=== PATIENT | male | born 1975 | race African-American/Black ===

== ENCOUNTER 2017-03-06 15:07 | Emergency (ER) | payer MEDICAID ==
[~2017-03-06] VITALS: Ht 170.2 cm; Wt 80.0 kg
[2017-03-06 15:18] VITALS: BP 179/102
[2017-03-06] MEDS ORDERED: ONDANSETRON HCL 4MG/2ML VIAL IV ONE (15:30)
[2017-03-06] MEDS ORDERED: FOLIC ACID 1 MG, THIAMINE HCL 100 MG, MVI, ADULT NO.1 10 ML in DEXTROSE 5% WATER 1,000 ML IV ONE ×4 (15:30)
[2017-03-06 16:09] LABS: CLARITY URINE CLEAR (CLEAR); COLOR URINE YELLOW (YELLOW); GLUCOSE URINE 3+ (NEGATIVE); KETONES URINE NEGATIVE (NEGATIVE); LEUKOCYTE ESTERASE URINE NEGATIVE (NEGATIVE); NITRITE URINE NEGATIVE (NEGATIVE); OCCULT BLOOD URINE NEGATIVE (NEGATIVE); PROTEIN URINE NEGATIVE (NEGATIVE); SPECIFIC GRAVITY URINE 1.029 (1.005-1.030); UROBILINOGEN URINE 0.2 E.U./dL (0.2-1.0)
[2017-03-06 16:11] LABS: BACTERIA URINE NONE SEEN; CALCIUM PHOSPHATE CRYSTALS UR NONE SEEN /lpf; RBC URINE NONE SEEN /hpf (0-2); SQUAMOUS EPITHELIAL CELL URINE NONE SEEN /lpf (RARE/1+); WAXY CASTS URINE NONE SEEN /lpf; WBC URINE NONE SEEN /hpf (0-2); YEAST URINE NONE SEEN
[2017-03-06 16:17] LABS: CHLORIDE 102 mEq/L (98-107); INDEX HEMOLYSI 1 (1-3); INDEX ICTERIC 1 (1-4); INDEX LIPEMIC 1 (1-3)
[2017-03-06 16:18] LABS: ALBUMIN 4.4 g/dL (3.4-5.0); ANION GAP 18; CARBON DIOXIDE 27 mEq/L (21-32); UREA NITROGEN BLOOD 9 mg/dL (7-21)
[2017-03-06 16:19] LABS: *AMPHETAMINES SCREEN URINE NEGATIVE (NEGATIVE); *BARBITURATES SCREEN URINE NEGATIVE (NEGATIVE); *BENZODIAZEPINES SCREEN URINE NEGATIVE (NEGATIVE); *COCAINE SCREEN URINE NEGATIVE (NEGATIVE); CANNABINOID URINE SCREEN NEGATIVE (NEGATIVE); ECSTASY MDMA SCREEN URINE NEGATIVE (NEGATIVE); METHADONE URINE SCREEN NEGATIVE (NEGATIVE); OPIATES URINE SCREEN PRESUMTIVE POSITIVE (NEGATIVE); PHENCYCLIDINE URINE SCREEN NEGATIVE (NEGATIVE)
[2017-03-06 16:25] LABS: ALANINE AMINOTRANSFERASE 43 IU/L (13-61); eGFR > 60 mL/min (>60)
[2017-03-06 16:28] LABS: ETHANOL BLOOD 336 mg/dL
[2017-03-06 16:29] LABS: BASOPHILS % 0.4 % (0.0-2.0); EOSINOPHILS % 0.1 % (0.0-5.0); HEMATOCRIT. 39.7 % (42.0-52.0); HEMOGLOBIN. 13.8 g/dL (14.0-18.0); MEAN CORPUSCULAR HEMOGLOBIN 34.6 pg (28.0-32.0); MEAN CORPUSCULAR HGB CONC 34.8 g/dL (31.0-37.0); MEAN CORPUSCULAR VOLUME 99.4 fL (80.0-94.0); MEAN PLATELET VOLUME 8.3 fl (7.4-10.4); MONOCYTES % 9.5 % (2.0-8.0); RED CELL DISTRIBUTION WIDTH 18.6 % (11.6-14.6); WHITE BLOOD COUNT 4.3 x1000/uL (4.5-11.0)
[2017-03-06 16:32] LABS: DIFFERENTIAL COMMENT 1
[2017-03-08 11:40] LABS: ADD RBC MORPHOLOGY YES
[2017-03-08 11:41] LABS: ANISOCYTOSIS 2+; PLATELET ESTIMATE MARKEDLY DECREASED
[2017-03-08 11:42] LABS: PLATELET 29 x1000/uL (130-400)
== END 2017-03-06 17:43 | disposition left against medical advice (07) ==
LOC: ER 15:08
DX: F10.129 Alcohol abuse with intoxication, unspecified (principal); F19.10 Other psychoactive substance abuse, uncomplicated; I10 Essential (primary) hypertension; R56.9 Unspecified convulsions; F17.200 Nicotine dependence, unspecified, uncomplicated
CPT/HCPCS: 36415; 80053; 80305; 81001; 85025; 96365; 96375; 99284; G0482; J2405; J3411; J3490; J7070; Z7610

== ENCOUNTER 2017-07-10 19:04 | Emergency (ER) | payer SELFPAY ==
[~2017-07-10] VITALS: Ht 182.9 cm; Wt 82.0 kg
[~2017-07-10 19:04] MED LIST: IOHEXOL-300 100 ML BOTTLE ONE; IOHEXOL-350 100 ML BOTTLE ONE; SODIUM CHLORIDE 0.9% 10ML VIAL ONE
[2017-07-11] MEDS ORDERED: SODIUM CHLORIDE 0.9% 1,000 ML IV ONE ×3 (02:14→04:30)
[2017-07-11 02:33] LABS: BASOPHILS % 0.5 % (0.0-2.0); EOSINOPHILS % 0.5 % (0.0-5.0); HEMATOCRIT. 34.2 % (42.0-52.0); HEMOGLOBIN. 12.1 g/dL (14.0-18.0); LYMPHOCYTES % 12.4 % (20.0-50.0); MEAN CORPUSCULAR HEMOGLOBIN 36.9 pg (28.0-32.0); MEAN CORPUSCULAR VOLUME 104.4 fL (80.0-94.0); MEAN PLATELET VOLUME 7.8 fl (7.4-10.4); MONOCYTES % 10.4 % (2.0-8.0); NEUTROPHILS % 76.2 % (40.0-76.0); RED BLOOD CELL COUNT 3.27 mill/uL (4.7-6.1); RED CELL DISTRIBUTION WIDTH 13.1 % (11.6-14.6)
[2017-07-11 02:34] LABS: PLATELET 26 x1000/uL (130-400)
[2017-07-11 02:45] LABS: CARBON DIOXIDE 26 mEq/L (21-32); CHLORIDE 104 mEq/L (98-107); ETHANOL BLOOD 253 mg/dL
[2017-07-11] MEDS ORDERED: ONDANSETRON HCL 4MG/2ML VIAL IV ONE (04:30)
[2017-07-11] MEDS ORDERED: MORPHINE SULFATE 4 MG/ML CPJ (NOT FOR IM USE) IV ONE (04:30)
[2017-07-11] MEDS ORDERED: FENTANYL CITRATE/PF 50MCG/ML 2ML VIAL IV ONE (06:15)
[2017-07-11 06:25] VITALS: BP 151/92
[2017-07-11 06:33] LABS: CLARITY URINE CLEAR (CLEAR); COLOR URINE YELLOW (YELLOW); GLUCOSE URINE NEGATIVE (NEGATIVE); KETONES URINE NEGATIVE (NEGATIVE); LEUKOCYTE ESTERASE URINE NEGATIVE (NEGATIVE); NITRITE URINE NEGATIVE (NEGATIVE); OCCULT BLOOD URINE NEGATIVE (NEGATIVE); PH URINE 5.5 (4.5-8.0); PROTEIN URINE 1+ (NEGATIVE); SPECIFIC GRAVITY URINE 1.018 (1.005-1.030)
[2017-07-11 06:46] LABS: *AMPHETAMINES SCREEN URINE NEGATIVE (NEGATIVE); *BARBITURATES SCREEN URINE NEGATIVE (NEGATIVE); *BENZODIAZEPINES SCREEN URINE NEGATIVE (NEGATIVE); *COCAINE SCREEN URINE NEGATIVE (NEGATIVE); CANNABINOID URINE SCREEN PRESUMTIVE POSITIVE (NEGATIVE); METHADONE URINE SCREEN NEGATIVE (NEGATIVE); OPIATES URINE SCREEN PRESUMTIVE POSITIVE (NEGATIVE); PHENCYCLIDINE URINE SCREEN NEGATIVE (NEGATIVE)
== END 2017-07-11 06:52 | disposition short-term general hospital (02) ==
LOC: ER 19:04
DX: S12.000A Unspecified displaced fracture of first cervical vertebra, initial encounter for closed fracture (principal); S82.142A Displaced bicondylar fracture of left tibia, initial encounter for closed fracture; S62.92XA Unspecified fracture of left hand, initial encounter for closed fracture; J45.909 Unspecified asthma, uncomplicated; I10 Essential (primary) hypertension; D69.6 Thrombocytopenia, unspecified; F10.129 Alcohol abuse with intoxication, unspecified; R42 Dizziness and giddiness; X58.XXXA Exposure to other specified factors, initial encounter; Y93.89 Activity, other specified; Y99.8 Other external cause status; Y92.89 Other specified places as the place of occurrence of the external cause
CPT/HCPCS: 29125; 29505; 36415; 70450; 70486; 70498; 71260; 72125; 73110; 73130; 73562; 74177; 80053; 80305; 81001; 85025; 96361; 96374; 96375; 99291; A4216; G0482; J2270; J2405; J3010; J7030; Q9967; Z7610

== ENCOUNTER 2017-09-11 19:55 | Emergency (ER) | payer MEDICAID ==
[~2017-09-11] VITALS: Ht 182.9 cm; Wt 77.0 kg
[2017-09-11] MEDS ORDERED: MORPHINE SULFATE 4 MG/ML CPJ (NOT FOR IM USE) IV STA (23:55)
[2017-09-11] MEDS ORDERED: SODIUM CHLORIDE 0.9% 1,000 ML IV ONE (23:55)
[2017-09-11] MEDS ORDERED: ONDANSETRON HCL 4MG/2ML VIAL IV STA (23:55)
[2017-09-12 00:17] LABS: BASOPHILS % 0.6 % (0.0-2.0); EOSINOPHILS % 0.6 % (0.0-5.0); HEMATOCRIT. 34.1 % (42.0-52.0); HEMOGLOBIN. 11.9 g/dL (14.0-18.0); LYMPHOCYTES % 27.4 % (20.0-50.0); MEAN CORPUSCULAR HEMOGLOBIN 34.8 pg (28.0-32.0); MEAN CORPUSCULAR VOLUME 99.1 fL (80.0-94.0); MEAN PLATELET VOLUME 7.6 fl (7.4-10.4); MONOCYTES % 12.7 % (2.0-8.0); NEUTROPHILS % 58.7 % (40.0-76.0); RED BLOOD CELL COUNT 3.44 mill/uL (4.7-6.1); RED CELL DISTRIBUTION WIDTH 17.3 % (11.6-14.6)
[2017-09-12 00:21] LABS: PLATELET 22 x1000/uL (130-400)
[2017-09-12 00:23] LABS: CHLORIDE 107 mEq/L (98-107)
[2017-09-12 00:28] LABS: CARBON DIOXIDE 29 mEq/L (21-32)
[2017-09-12 06:02] VITALS: BP 122/78
== END 2017-09-12 06:06 | disposition home or self-care (01) ==
LOC: ER 19:59
DX: S12.001A Unspecified nondisplaced fracture of first cervical vertebra, initial encounter for closed fracture (principal); S02.2XXA Fracture of nasal bones, initial encounter for closed fracture; S00.531A Contusion of lip, initial encounter; H11.31 Conjunctival hemorrhage, right eye; F17.200 Nicotine dependence, unspecified, uncomplicated; Y09 Assault by unspecified means; Y93.89 Activity, other specified; Y92.89 Other specified places as the place of occurrence of the external cause; Y99.8 Other external cause status
CPT/HCPCS: 36415; 70450; 70486; 71010; 72125; 80048; 85025; 86850; 86900; 86901; 96361; 96374; 96375; 99285; J2270; J2405; Z7610; J7030

== ENCOUNTER 2022-06-20 11:12 | Emergency (ER) | payer MEDICAID, OTHER ==
[~2022-06-20] VITALS: Ht 182.9 cm; Wt 86.0 kg
[2022-06-20 11:21] VITALS: BP 162/89
== END 2022-06-20 13:38 | disposition home or self-care (01) ==
LOC: ER 11:12
DX: T51.91XA Toxic effect of unspecified alcohol, accidental (unintentional), initial encounter (principal); Y92.9 Unspecified place or not applicable; I10 Essential (primary) hypertension
CPT/HCPCS: 99283

== ENCOUNTER 2022-11-15 05:15 | Inpatient (IN) | payer OTHER ==
[~2022-11-15] VITALS: Ht 172.7 cm; Wt 84.4 kg
[2022-11-15] VITALS (20 sets, daily range): BP systolic 105–142; BP diastolic 56–77
[2022-11-15] MEDS ORDERED: ACETAMINOPHEN 325MG TABLET PO ONE (05:30)
[2022-11-15] MEDS ORDERED: T3 PO (07:24)
[2022-11-15] MEDS ORDERED: IBUP-2028 PO (07:24)
[2022-11-15] MEDS ORDERED: NICARDIPINE 100 MG in SODIUM CHLORIDE 0.9% 60 ML IV PRN ×2 (09:00→12:00)
[2022-11-15 11:07] LABS: INR 1.1; PROTHROMBIN TIME 11.4 sec (9.6-11.0)
[2022-11-15 11:11] LABS: CHLORIDE 102 mEq/L (98-107)
[2022-11-15 11:50] LABS: HEMATOCRIT. 28.4 % (42.0-52.0); HEMOGLOBIN. 10.2 g/dL (14.0-18.0); MEAN CORPUSCULAR HEMOGLOBIN 36.7 pg (28.0-32.0); MEAN CORPUSCULAR VOLUME 102.8 fL (80.0-94.0); MEAN PLATELET VOLUME 8.2 fl (7.4-10.4); PLATELET 78 x1000/uL (130-400); RED BLOOD CELL COUNT 2.77 mill/uL (4.7-6.1); RED CELL DISTRIBUTION WIDTH 13.3 % (11.6-14.6)
[2022-11-15 12:29] LABS: PLATELET ESTIMATE DECREASED
[2022-11-15] MEDS ORDERED: ACETAMINOPHEN 325MG TABLET PO PRN (12:30)
[2022-11-15] MEDS ORDERED: NALOXONE HCL 0.4MG/ML VIAL IV PRN (12:30)
[2022-11-15] MEDS ORDERED: MVI, ADULT NO.1 10 ML, FOLIC ACID 1 MG, THIAMINE HCL 100 MG in SODIUM CHLORIDE 0.9% 1,0... IV ONE ×8 (12:30→17:00)
[2022-11-15] MEDS ORDERED: ONDANSETRON HCL 4MG/2ML INJ IV PRN (12:30)
[2022-11-15] MEDS ORDERED: LORAZEPAM 2MG/ML CPJ IV PRN (16:00)
[2022-11-15 17:05] LABS: CREATINE KINASE 689 IU/L (39-308)
[2022-11-15] MEDS: DEXT 5%/0.9% NACL 1,000 ML IV SCH (19:48)
[2022-11-15] MEDS ORDERED: DEXTROSE 50% WATER 50ML SYRINGE IV PRN (20:15)
[2022-11-15] MEDS: BLOOD SUGAR DIAGNOSTIC STRIP TEST SCH (20:54)
[2022-11-15] MEDS: INSULIN LISPRO 100 UNITS/ML SUBCUT SCH (20:55)
[2022-11-15] MEDS: PANTOPRAZOLE SODIUM 40 MG/VIAL IV SCH (20:56)
[2022-11-15] MEDS: HYDROCODONE/ACETAMINOPHEN 5/325MG TABLET PO PRN (21:00)
[2022-11-15] MEDS ORDERED: CYANOCOBALAMIN 1000MCG/ML VIAL IM NR (22:15)
[2022-11-15] MEDS: THIAMINE HCL 200 MG in SODIUM CHLORIDE 0.9% 98 ML IV SCH (22:48)
[2022-11-16] VITALS (55 sets, daily range): BP systolic 106–143; BP diastolic 37–90
[2022-11-16 01:31] LABS: CREATINE KINASE 575 IU/L (39-308)
[2022-11-16 04:55] LABS: BASOPHILS % 0.5 % (0.0-2.0); EOSINOPHILS % 0.1 % (0.0-5.0); HEMATOCRIT. 24.4 % (42.0-52.0); HEMOGLOBIN. 8.6 g/dL (14.0-18.0); LYMPHOCYTES % 13.8 % (20.0-50.0); MEAN CORPUSCULAR HEMOGLOBIN 36.1 pg (28.0-32.0); MEAN CORPUSCULAR VOLUME 102.4 fL (80.0-94.0); MEAN PLATELET VOLUME 8.5 fl (7.4-10.4); MONOCYTES % 9.1 % (2.0-8.0); NEUTROPHILS % 76.5 % (40.0-76.0); PLATELET 54 x1000/uL (130-400); RED BLOOD CELL COUNT 2.39 mill/uL (4.7-6.1); RED CELL DISTRIBUTION WIDTH 13.1 % (11.6-14.6)
[2022-11-16 05:06] LABS: CHLORIDE 105 mEq/L (98-107)
[2022-11-16 05:12] LABS: CREATINE KINASE 543 IU/L (39-308)
[2022-11-16] MEDS: CHLORDIAZEPOXIDE 25MG CAPSULE PO SCH ×3 (05:18→21:03)
[2022-11-16 05:30] LABS: HDL CHOLESTEROL 114 mg/dL (40-59); LDL CHOLESTEROL 39 mg/dL (5-100); T4 FREE 0.72 ng/dL (0.76-1.46)
[2022-11-16] MEDS: BLOOD SUGAR DIAGNOSTIC STRIP TEST SCH ×4 (05:39→20:56)
[2022-11-16] MEDS: INSULIN LISPRO 100 UNITS/ML SUBCUT SCH ×4 (05:39→20:57)
[2022-11-16 06:17] LABS: VITAMIN B12 SERUM >2000 pg/mL pg/mL (211-911)
[2022-11-16] MEDS: FOLIC ACID 1MG TABLET PO SCH (08:55)
[2022-11-16] MEDS: MULTIVITAMINS,THER W-MINERALS TABLET PO SCH (08:56)
[2022-11-16] MEDS ORDERED: THIAMINE HCL 100MG TABLET PO SCH (09:00)
[2022-11-16] MEDS: HYDROCODONE/ACETAMINOPHEN 5/325MG TABLET PO PRN ×3 (09:31→19:52)
[2022-11-16 11:41] LABS: CLARITY URINE CLEAR (CLEAR); COLOR URINE YELLOW (YELLOW); KETONES URINE NEGATIVE (NEGATIVE); LEUKOCYTE ESTERASE URINE NEGATIVE (NEGATIVE); NITRITE URINE NEGATIVE (NEGATIVE); OCCULT BLOOD URINE NEGATIVE (NEGATIVE); PROTEIN URINE NEGATIVE (NEGATIVE); SPECIFIC GRAVITY URINE 1.013 (1.005-1.030)
[2022-11-16 13:04] LABS: PHOSPHORUS 2.1 mg/dL (2.5-4.9)
[2022-11-16 13:29] LABS: FOLIC ACID (FOLATE) SERUM > 20.00 ng/mL (>5.38)
[2022-11-16 13:31] LABS: HEPATITIS B SURFACE ANTIGEN NEGATIVE
[2022-11-16 14:31] LABS: FERRITIN 4285 ng/mL (22-322)
[2022-11-16] MEDS: DEXT 5%/0.9% NACL 1,000 ML IV SCH (19:02)
[2022-11-16] MEDS ORDERED: POTASSIUM CHLORIDE 20MEQ TABLET SR PO NR (19:45)
[2022-11-16] MEDS ORDERED: SODIUM PHOS,M-BASIC-D-BASIC 10 MM in DEXT 5% WATER 246.6667 ML IV NR (20:30)
[2022-11-16] MEDS ORDERED: MAGNESIUM 2 G PREMIX 50 ML IV NR (20:30)
[2022-11-16] MEDS: PANTOPRAZOLE SODIUM 40 MG/VIAL IV SCH (21:03)
[2022-11-16] MEDS: THIAMINE HCL 200 MG in SODIUM CHLORIDE 0.9% 98 ML IV SCH (22:38)
[2022-11-17] VITALS (24 sets, daily range): BP systolic 122–150; BP diastolic 48–100
[2022-11-17] MEDS: DEXT 5%/0.9% NACL 1,000 ML IV SCH ×2 (04:42→16:40)
[2022-11-17 04:45] LABS: CHLORIDE 107 mEq/L (98-107)
[2022-11-17 04:57] LABS: BASOPHILS % 0.3 % (0.0-2.0); EOSINOPHILS % 0.5 % (0.0-5.0); HEMATOCRIT. 21.9 % (42.0-52.0); HEMOGLOBIN. 7.8 g/dL (14.0-18.0); LYMPHOCYTES % 18.9 % (20.0-50.0); MEAN CORPUSCULAR HEMOGLOBIN 36.4 pg (28.0-32.0); MEAN CORPUSCULAR VOLUME 102.4 fL (80.0-94.0); MEAN PLATELET VOLUME 8.7 fl (7.4-10.4); MONOCYTES % 9.3 % (2.0-8.0); RED BLOOD CELL COUNT 2.14 mill/uL (4.7-6.1); RED CELL DISTRIBUTION WIDTH 13.4 % (11.6-14.6)
[2022-11-17] MEDS: CHLORDIAZEPOXIDE 25MG CAPSULE PO SCH ×3 (05:53→21:43)
[2022-11-17] MEDS: BLOOD SUGAR DIAGNOSTIC STRIP TEST SCH ×4 (05:53→21:11)
[2022-11-17] MEDS: INSULIN LISPRO 100 UNITS/ML SUBCUT SCH ×4 (06:20→21:00)
[2022-11-17] MEDS: FOLIC ACID 1MG TABLET PO SCH (08:56)
[2022-11-17] MEDS: MULTIVITAMINS,THER W-MINERALS TABLET PO SCH (08:56)
[2022-11-17] MEDS: HYDROCODONE/ACETAMINOPHEN 5/325MG TABLET PO PRN (09:01)
[2022-11-17 10:43] LABS: PLATELET 43 x1000/uL (130-400)
[2022-11-17 10:45] LABS: PLATELET ESTIMATE MARKEDLY DECREASED
[2022-11-17] MEDS ORDERED: MAGNESIUM 2 G PREMIX 50 ML IV NR (17:00)
[2022-11-17] MEDS: PANTOPRAZOLE SODIUM 40 MG/VIAL IV SCH (21:43)
[2022-11-17] MEDS: THIAMINE HCL 200 MG in SODIUM CHLORIDE 0.9% 98 ML IV SCH (21:44)
[2022-11-18] VITALS (26 sets, daily range): BP systolic 108–143; BP diastolic 64–94
[2022-11-18 05:30] LABS: BASOPHILS % 0.4 % (0.0-2.0); HEMOGLOBIN. 7.2 g/dL (14.0-18.0); LYMPHOCYTES % 16.4 % (20.0-50.0); MEAN CORPUSCULAR HEMOGLOBIN 36.5 pg (28.0-32.0); MEAN CORPUSCULAR VOLUME 102.9 fL (80.0-94.0); MEAN PLATELET VOLUME 8.8 fl (7.4-10.4); MONOCYTES % 11.5 % (2.0-8.0); NEUTROPHILS % 70.7 % (40.0-76.0); PLATELET 51 x1000/uL (130-400); RED BLOOD CELL COUNT 1.98 mill/uL (4.7-6.1); RED CELL DISTRIBUTION WIDTH 13.2 % (11.6-14.6)
[2022-11-18] MEDS: BLOOD SUGAR DIAGNOSTIC STRIP TEST SCH ×4 (05:39→21:37)
[2022-11-18] MEDS: CHLORDIAZEPOXIDE 25MG CAPSULE PO SCH ×2 (05:41→13:53)
[2022-11-18 05:46] LABS: CHLORIDE 104 mEq/L (98-107)
[2022-11-18 06:17] LABS: HEMATOCRIT. 20.4 % (42.0-52.0)
[2022-11-18] MEDS: INSULIN LISPRO 100 UNITS/ML SUBCUT SCH ×4 (06:38→21:00)
[2022-11-18] MEDS: MULTIVITAMINS,THER W-MINERALS TABLET PO SCH (08:22)
[2022-11-18] MEDS: FOLIC ACID 1MG TABLET PO SCH (08:22)
[2022-11-18] MEDS: PANTOPRAZOLE SODIUM 40 MG/VIAL IV SCH (21:35)
[2022-11-18] MEDS: HYDROCODONE/ACETAMINOPHEN 5/325MG TABLET PO PRN (21:37)
[2022-11-18] MEDS: THIAMINE HCL 200 MG in SODIUM CHLORIDE 0.9% 98 ML IV SCH (21:37)
[2022-11-19] VITALS (15 sets, daily range): BP systolic 118–147; BP diastolic 71–84
[2022-11-19 05:52] LABS: BASOPHILS % 0.3 % (0.0-2.0); EOSINOPHILS % 1.9 % (0.0-5.0); HEMATOCRIT. 21.5 % (42.0-52.0); HEMOGLOBIN. 7.7 g/dL (14.0-18.0); LYMPHOCYTES % 19.8 % (20.0-50.0); MEAN CORPUSCULAR VOLUME 103.9 fL (80.0-94.0); MEAN PLATELET VOLUME 8.9 fl (7.4-10.4); MONOCYTES % 14.2 % (2.0-8.0); NEUTROPHILS % 63.8 % (40.0-76.0); PLATELET 66 x1000/uL (130-400); RED BLOOD CELL COUNT 2.07 mill/uL (4.7-6.1); RED CELL DISTRIBUTION WIDTH 13.3 % (11.6-14.6)
[2022-11-19 05:55] LABS: CHLORIDE 106 mEq/L (98-107)
[2022-11-19] MEDS: MULTIVITAMINS,THER W-MINERALS TABLET PO SCH (09:36)
[2022-11-19] MEDS: FOLIC ACID 1MG TABLET PO SCH (09:36)
[2022-11-19] MEDS: DEXT 5%/0.9% NACL 1,000 ML IV SCH ×2 (09:37→09:39)
[2022-11-19] MEDS: BLOOD SUGAR DIAGNOSTIC STRIP TEST SCH ×3 (12:00→23:47)
[2022-11-19] MEDS: INSULIN LISPRO 100 UNITS/ML SUBCUT SCH ×3 (12:30→23:47)
[2022-11-19] MEDS ORDERED: PANTOPRAZOLE 40MG DR TABLET PO SCH (21:30)
[2022-11-19] MEDS: PANTOPRAZOLE 40MG DR TABLET PO SCH (21:40)
[2022-11-19] MEDS: HYDROCODONE/ACETAMINOPHEN 5/325MG TABLET PO PRN (21:40)
[2022-11-20] VITALS: BP 115/72
[2022-11-20 04:00] VITALS: BP 118/75
[2022-11-20] MEDS: BLOOD SUGAR DIAGNOSTIC STRIP TEST SCH ×3 (05:58→18:16)
[2022-11-20] MEDS: INSULIN LISPRO 100 UNITS/ML SUBCUT SCH ×3 (06:30→18:16)
[2022-11-20 07:34] LABS: HEMATOCRIT 21.8 % (42.0-52.0); HEMOGLOBIN 7.8 g/dL (14.0-18.0); PLATELET 84 x1000/uL (130-400); RED BLOOD CELL COUNT 2.12 mill/uL (4.7-6.1); RED CELL DISTRIBUTION WIDTH 13.5 % (11.6-14.6)
[2022-11-20 08:00] VITALS: BP 139/90
[2022-11-20 08:19] LABS: CHLORIDE 105 mEq/L (98-107)
[2022-11-20 08:23] LABS: PHOSPHORUS 4.1 mg/dL (2.5-4.9)
[2022-11-20] MEDS: MULTIVITAMINS,THER W-MINERALS TABLET PO SCH (08:44)
[2022-11-20] MEDS: FOLIC ACID 1MG TABLET PO SCH (08:44)
[2022-11-20] MEDS: HYDROCODONE/ACETAMINOPHEN 5/325MG TABLET PO PRN ×2 (08:45→21:12)
[2022-11-20] MEDS ORDERED: BACITRACIN ZINC OINT UDPKT TOP ONE (09:45)
[2022-11-20 12:00] VITALS: BP 115/73
[2022-11-20] MEDS ORDERED: MAGNESIUM 1 G PREMIX 100 ML IV NR (12:00)
[2022-11-20 16:00] VITALS: BP 119/74
[2022-11-20] MEDS: BACITRACIN 15GM TUBE TOP SCH (17:00)
[2022-11-20] MEDS: NAPHAZOLINE HCL/PHENIR MAL OPHTH SOLN 15ML BOTHEYE PRN (18:19)
[2022-11-20 20:00] VITALS: BP 117/68
[2022-11-20] MEDS ORDERED: ZOLPIDEM TARTRATE 5MG TABLET PO PRN (21:00)
[2022-11-20] MEDS: PANTOPRAZOLE 40MG DR TABLET PO SCH (21:12)
[2022-11-21] VITALS: BP 134/70
[2022-11-21] MEDS: INSULIN LISPRO 100 UNITS/ML SUBCUT SCH ×4 (00:09→18:30)
[2022-11-21 04:00] VITALS: BP 129/72
[2022-11-21] MEDS: BLOOD SUGAR DIAGNOSTIC STRIP TEST SCH ×4 (06:00→18:00)
[2022-11-21] MEDS: HYDROCODONE/ACETAMINOPHEN 5/325MG TABLET PO PRN ×2 (06:46→19:48)
[2022-11-21 07:26] LABS: HEMATOCRIT 21.5 % (42.0-52.0); HEMOGLOBIN 7.6 g/dL (14.0-18.0); MEAN CORPUSCULAR HEMOGLOBIN 36.5 pg (28.0-32.0); MEAN CORPUSCULAR VOLUME 103.2 fL (80.0-94.0); PLATELET 103 x1000/uL (130-400); RED BLOOD CELL COUNT 2.09 mill/uL (4.7-6.1); RED CELL DISTRIBUTION WIDTH 13.5 % (11.6-14.6)
[2022-11-21 08:00] VITALS: BP 145/87
[2022-11-21 08:03] LABS: CHLORIDE 105 mEq/L (98-107)
[2022-11-21 08:26] LABS: PHOSPHORUS 4.1 mg/dL (2.5-4.9)
[2022-11-21] MEDS: MULTIVITAMINS,THER W-MINERALS TABLET PO SCH (08:27)
[2022-11-21] MEDS: FOLIC ACID 1MG TABLET PO SCH (08:27)
[2022-11-21] MEDS: BACITRACIN 15GM TUBE TOP SCH ×2 (08:30→17:00)
[2022-11-21 12:00] VITALS: BP 141/78
[2022-11-21] MEDS ORDERED: IPRATROPIUM/ALBUTEROL 0.5-3(2.5)MG/3ML NEB HHN PRN (12:00)
[2022-11-21 16:00] VITALS: BP 140/81
[2022-11-21 20:00] VITALS: BP 117/65
[2022-11-21] MEDS: PANTOPRAZOLE 40MG DR TABLET PO SCH (20:07)
[2022-11-21] MEDS ORDERED: ZOLPIDEM TARTRATE 5MG TABLET PO SCH (21:00)
[2022-11-22] VITALS: BP 129/73
[2022-11-22] MEDS: BLOOD SUGAR DIAGNOSTIC STRIP TEST SCH ×2 (00:06→06:38)
[2022-11-22] MEDS: INSULIN LISPRO 100 UNITS/ML SUBCUT SCH ×2 (00:07→06:30)
[2022-11-22 04:00] VITALS: BP 130/75
[2022-11-22 08:00] VITALS: BP 131/81
[2022-11-22] MEDS: FOLIC ACID 1MG TABLET PO SCH (09:27)
[2022-11-22] MEDS: MULTIVITAMINS,THER W-MINERALS TABLET PO SCH (09:27)
[2022-11-22] MEDS: NAPHAZOLINE HCL/PHENIR MAL OPHTH SOLN 15ML BOTHEYE PRN (09:27)
[2022-11-22] MEDS: HYDROCODONE/ACETAMINOPHEN 5/325MG TABLET PO PRN (10:23)
[2022-11-22 10:57] VITALS: BP 131/80
[2022-11-22] MEDS ORDERED: DICLOFENAC SODIUM 1% GEL 50GM TOP SCH (12:00)
== END 2022-11-22 11:40 | disposition home or self-care (01) | DRG 55 ==
LOC: ER 05:22 → MICUNO 11:14 → EDBEDREQTM 11:16 → EDBEDREQ 11:16 → ENRESERV 13:35 → 6EST 11-19 16:17
PROVIDERS: ADMIT Internal Medicine; ATTEND Internal Medicine
DX: S06.340A Traumatic hemorrhage of right cerebrum without loss of consciousness, initial encounter (principal); M62.82 Rhabdomyolysis; D69.6 Thrombocytopenia, unspecified; E83.39 Other disorders of phosphorus metabolism; D53.9 Nutritional anemia, unspecified; S42.202A Unspecified fracture of upper end of left humerus, initial encounter for closed fracture; D69.59 Other secondary thrombocytopenia; Z20.822 Contact with and (suspected) exposure to COVID-19; K70.9 Alcoholic liver disease, unspecified; E53.8 Deficiency of other specified B group vitamins; E78.5 Hyperlipidemia, unspecified; I10 Essential (primary) hypertension; F10.239 Alcohol dependence with withdrawal, unspecified; E83.42 Hypomagnesemia; R74.01 Elevation of levels of liver transaminase levels; D72.819 Decreased white blood cell count, unspecified; F19.10 Other psychoactive substance abuse, uncomplicated; Z91.81 History of falling; Z59.00 Homelessness unspecified; W17.2XXA Fall into hole, initial encounter; Y92.89 Other specified places as the place of occurrence of the external cause; Y99.8 Other external cause status; Y93.89 Activity, other specified
CPT/HCPCS: 36415; 71045; 73030; 76700; 80048; 80053; 80061; 81003; 82550; 82607; 82728; 82746; 82962; 83036; 83540; 83550; 83735; 84100; 84439; 84443; 84484; 85025; 85027; 86705; 86709; 86803; 86850; 86900; 87340; 87426; 93970; 97116; 97162; 97166; 99291; A4565; A6261; C9113; J1815; J3411; J3420; J3475; J3490; J7030; J7042; J7050; J7060; L3670; A5200

== ENCOUNTER 2023-01-23 18:27 | Emergency (ER) | payer OTHER ==
[~2023-01-23] VITALS: Ht 182.9 cm; Wt 79.0 kg
[~2023-01-23 18:27] MED LIST changes: +IBUP-2028 PO; -IOHEXOL-300 100 ML BOTTLE ONE; -IOHEXOL-350 100 ML BOTTLE ONE; -SODIUM CHLORIDE 0.9% 10ML VIAL ONE; +T3 PO
[2023-01-23 19:47] VITALS: BP 178/104
[2023-01-23] MEDS ORDERED: KETOROLAC 15MG/ML VIAL IM ONE (22:15)
[2023-01-24] MEDS ORDERED: NAPR500T7 MT ×2 (00:56→09:06)
== END 2023-01-24 01:15 | disposition home or self-care (01) ==
LOC: ER 18:27
DX: S89.81XA Other specified injuries of right lower leg, initial encounter (principal); W22.09XA Striking against other stationary object, initial encounter; Y93.89 Activity, other specified; Y92.89 Other specified places as the place of occurrence of the external cause; Z96.649 Presence of unspecified artificial hip joint
CPT/HCPCS: 73562; 96372; 99283; J1885; Z7610

== ENCOUNTER 2023-01-24 08:09 | Emergency (ER) | payer OTHER ==
[~2023-01-24] VITALS: Ht 182.9 cm; Wt 77.0 kg
[~2023-01-24 08:09] MED LIST changes: +NAPR500T7 MT
[2023-01-24 08:14] VITALS: BP 192/97
[2023-01-24] MEDS ORDERED: NAPR500T7 MT (09:06)
[2023-01-24] MEDS ORDERED: TRAMADOL 50MG TABLET PO NR (09:15)
[2023-01-24] MEDS ORDERED: KETOROLAC 60MG/2ML VIAL IM NR (09:15)
== END 2023-01-24 12:44 | disposition home or self-care (01) ==
LOC: ER 08:30
DX: S80.01XA Contusion of right knee, initial encounter (principal); S83.91XA Sprain of unspecified site of right knee, initial encounter; W22.09XA Striking against other stationary object, initial encounter; Y93.89 Activity, other specified; Y92.89 Other specified places as the place of occurrence of the external cause; Z96.649 Presence of unspecified artificial hip joint
CPT/HCPCS: 96372; 99283; J1885; Z7610

== ENCOUNTER 2023-03-10 00:02 | Emergency (ER) | payer OTHER ==
[~2023-03-10] VITALS: Ht 188 cm; Wt 89.0 kg
[2023-03-10 00:04] VITALS: BP 166/100
== END 2023-03-10 05:19 | disposition home or self-care (01) ==
LOC: ER 00:17
DX: S09.90XA Unspecified injury of head, initial encounter (principal); M25.551 Pain in right hip; W18.39XA Other fall on same level, initial encounter; Y93.89 Activity, other specified; Y92.89 Other specified places as the place of occurrence of the external cause; Y99.8 Other external cause status
CPT/HCPCS: 72170; 99284

== ENCOUNTER 2023-04-01 17:02 | Emergency (ER) | payer OTHER ==
[~2023-04-01] VITALS: Ht 182.9 cm; Wt 81.8 kg
[2023-04-01 17:17] VITALS: BP 122/82
== END 2023-04-01 18:25 | disposition left against medical advice (07) ==
LOC: ER 17:02
DX: Z48.02 Encounter for removal of sutures (principal); Z53.21 Procedure and treatment not carried out due to patient leaving prior to being seen by health care provider
CPT/HCPCS: 99281

== ENCOUNTER 2023-04-04 17:22 | Emergency (ER) | payer OTHER ==
[~2023-04-04] VITALS: Ht 175.3 cm; Wt 87.0 kg
[2023-04-04 17:39] VITALS: BP 126/82
[2023-04-04] MEDS: ACETAMINOPHEN 325MG TABLET PO NR ×2 (22:25→22:26)
[2023-04-04] MEDS ORDERED: HYDR-4001 MT (22:45)
[2023-04-04] MEDS ORDERED: IBUP-2029 MT (22:45)
== END 2023-04-04 23:46 | disposition home or self-care (01) ==
LOC: ER 17:22
DX: S52.501A Unspecified fracture of the lower end of right radius, initial encounter for closed fracture (principal); W18.39XA Other fall on same level, initial encounter; Y93.89 Activity, other specified; Y92.89 Other specified places as the place of occurrence of the external cause; Y99.8 Other external cause status; F32.9 Major depressive disorder, single episode, unspecified
CPT/HCPCS: 29125; 73090; 73110; 73130; 99284; Z7610

== ENCOUNTER 2023-06-07 15:53 | Emergency (ER) | payer MEDICAID, OTHER ==
[~2023-06-07] VITALS: Ht 177.8 cm; Wt 91.0 kg
[~2023-06-07 15:53] MED LIST changes: +HYDR-4001 MT; +IBUP-2029 MT
[2023-06-07 16:03] VITALS: O2SAT 96
[2023-06-07] MEDS ORDERED: HYDROCODONE/ACETAMINOPHEN 5/325MG TABLET PO ONE (22:00)
[2023-06-07] MEDS ORDERED: IBUP-2029 MT (23:54)
[2023-06-08 00:22] VITALS: BP 132/88; PULSE 99; RESP 16; TEMP 98.8
== END 2023-06-08 00:22 | disposition home or self-care (01) ==
LOC: ER 15:53
DX: S82.892A Other fracture of left lower leg, initial encounter for closed fracture (principal); S80.12XA Contusion of left lower leg, initial encounter; F32.9 Major depressive disorder, single episode, unspecified; I10 Essential (primary) hypertension; W18.39XA Other fall on same level, initial encounter; Y93.89 Activity, other specified; Y92.89 Other specified places as the place of occurrence of the external cause; Y99.8 Other external cause status
CPT/HCPCS: 93971; 73590; 73610; 73630; 99284; Z7610